=== PATIENT | male | born 1985 | race Caucasian/White ===

== ENCOUNTER 2018-07-31 19:40 | Observation (INO) | payer MEDICARE, OTHER ==
[~2018-07-31] VITALS: Ht 177.8 cm; Wt 90.7 kg
[2018-07-31] MEDS ORDERED: NS IV 1000 ML 1,000 ML IV ONE (20:07)
[2018-07-31] MEDS ORDERED: ASPIRIN 81 MG CHEW (CHILDREN'S ASA) PO ONE (20:15)
[2018-07-31] MEDS ORDERED: LORazepam INJ 2 MG/ML (ATIVAN) VIAL IVP ONE ×2 (20:15→20:45)
[2018-07-31 20:16] LABS: BASOPHILS # (AUTO) 0.1 10^3/uL (0.0-0.1); BASOPHILS % (AUTO) 1 % (0-10); EOSINOPHILS # (AUTO) 0.4 10^3/uL (0.0-0.3); EOSINOPHILS % (AUTO) 4 % (0-10); HEMATOCRIT 49 % (40-54); HEMOGLOBIN 17.5 G/DL (13.3-17.7); LYMPHOCYTES # (AUTO) 3.9 X 10^3 (1.0-4.0); LYMPHOCYTES % (AUTO) 33 % (12-44); MEAN CORPUSCULAR HEMOGLOBIN 30 PG (25-34); MEAN CORPUSCULAR HGB CONC 35 G/DL (32-36); MEAN CORPUSCULAR VOLUME 85 FL (80-99); MEAN PLATELET VOLUME 11.1 FL (7.4-10.4); MONOCYTES # (AUTO) 1.1 X 10^3 (0.0-1.0); MONOCYTES % (AUTO) 9 % (0-12); NEUTROPHILS # (AUTO) 6.5 X 10^3 (1.8-7.8); NEUTROPHILS % (AUTO) 54 % (42-75); PLATELET COUNT 217 10^3/uL (130-400); RED CELL DISTRIBUTION WIDTH 12.7 % (10.0-14.5)
[2018-07-31 20:20] LABS: BILIRUBIN,URINE NEGATIVE (NEGATIVE); CLARITY,URINE CLEAR; COLOR,URINE YELLOW; GLUCOSE, URINE (UA) NEGATIVE (NEGATIVE); KETONES,URINE NEGATIVE (NEGATIVE); LEUKOCYTE ESTERASE ,URINE 2+ (NEGATIVE); NITRITE,URINE NEGATIVE (NEGATIVE); PH,URINE 6.5 (5-9); PROTEIN,URINE 1+ (NEGATIVE); UROBILINOGEN,URINE NORMAL (NORMAL)
[2018-07-31 20:26] LABS: INR 0.9 (0.8-1.4); PROTHROMBIN TIME PATIENT 12.7 SEC (12.2-14.7)
[2018-07-31 20:30] LABS: ALANINE AMINOTRANSFERASE 47 U/L (0-55); ALBUMIN 4.6 GM/DL (3.2-4.5); ALKALINE PHOSPHATASE 81 U/L (40-136); BILIRUBIN,TOTAL 0.5 MG/DL (0.1-1.0); BUN/CREATININE RATIO 13; CALCIUM 9.5 MG/DL (8.5-10.1); CARBON DIOXIDE 21 MMOL/L (21-32); CHLORIDE 106 MMOL/L (98-107); CREATINE KINASE 130 U/L (30-200); CREATININE SERUM 1.12 MG/DL (0.60-1.30); GFR ESTIMATED > 60; GLUCOSE 108 MG/DL (70-105); MAGNESIUM 2.1 MG/DL (1.8-2.4); POTASSIUM 3.6 MMOL/L (3.6-5.0); SODIUM 139 MMOL/L (135-145); TOTAL PROTEIN 7.3 GM/DL (6.4-8.2)
[2018-07-31 20:34] LABS: AMPHETAMINE SCREEN, URINE POSITIVE (NEGATIVE); BARBITURATE SCREEN URINE NEGATIVE (NEGATIVE); BENZODIAZEPINES SCREEN URINE NEGATIVE (NEGATIVE); CANNABINOID SCREEN, URINE POSITIVE (NEGATIVE); COCAINE SCREEN URINE NEGATIVE (NEGATIVE); METHADONE STAT NEGATIVE (NEGATIVE); METHAMPHETAMINE SCREEN URINE S NEGATIVE (NEGATIVE); OPIATE SCREEN URINE NEGATIVE (NEGATIVE); OXYCODONE STAT NEGATIVE (NEGATIVE); PROPOXYPHENE STAT NEGATIVE (NEGATIVE); TRICYCLIC ANTIDEPRESSANTS SCRE NEGATIVE (NEGATIVE)
[2018-07-31 20:35] LABS: BACTERIA,URINE TRACE /HPF; RBC,URINE RARE /HPF
--- NOTE | 2018-07-31 20:35 | ED Chest Pain ---
General Chief Complaint: Chest Pain Stated Complaint: CP Nursing Triage Note: PT complaining of left arm pain and chest pain. Pt appears extremely anxious and does admit to using methamphetamines earlier today. Nursing Sepsis Screen: No Definite Risk Source: patient, other (friend) Exam Limitations: no limitations (CARMELA FALLON MD) History of Present Illness Date Seen by Provider: July 31, 2018 Time Seen by Provider: 19:58 Initial Comments This 33-year-old man presents to the emergency room with complaints of hypertension and chest pain. He had been seated at [facility] in their ER prior to coming here. He left because he did not want to receive medications they were offering him, and he claims they wanted to "send me to the [facility] [employer] [facility]". Patient is very anxious with pressured speech and has dystonic movements. Presentation is consistent with influence of methamphetamines. Patient states he may have used methamphetamines today in the "hit I took" earlier. His friend states he did use methamphetamines this afternoon. Patient states he hurts all over including his chest. He reports history of hypertension. It is difficult to obtain an accurate blood pressure measurement because of his dystonic movements. (CARMELA FALLON MD) Allergies and Home Medications Allergies Coded Allergies: methylphenidate (Verified Allergy, Unknown, Unknown, 07/31/18) tramadol (Verified Allergy, Unknown, Unknown, 07/31/18) Patient Home Medication List Home Medication List Reviewed: Yes (CARMELA FALLON MD) Review of Systems Review of Systems Constitutional: see HPI EENTM: Other (oropharynx is very dry) Respiratory: No Symptoms Reported Cardiovascular: See HPI Gastrointestinal: No Symptoms Reported Genitourinary: No Symptoms Reported Musculoskeletal: see HPI Skin: no symptoms reported Psychiatric/Neurological: See HPI Endocrine: No Symptoms Reported Hematologic/Lymphatic: No Symptoms Reported (CARMELA FALLON MD) Past Gxbdpns-Iwjlhb-Fqdabw Hx Past Med/Social Hx: Reviewed and Corrections made (CARMELA FALLON MD) Patient Social History Alcohol Use: Occasionally Uses Recreational Drug Use: Yes Drug of Choice: Methamphetamine Smoking Status: Current Everyday Smoker 2nd Hand Smoke Exposure: Yes Recent Foreign Travel: No Contact w/Someone Who Travel: No Recent Infectious Disease Expo: No Recent Hopitalizations: No Physical Abuse: No Sexual Abuse: No Mistreated: No (CARMELA FALLON MD) Past Medical History Surgeries: No Respiratory: No Cardiac: Yes Hypertension Neurological: No Genitourinary: No Gastrointestinal: No Musculoskeletal: No Endocrine: No HEENT: No Cancer: No Psychosocial: Yes (substance abuse) Anxiety, Bipolar Integumentary: No Blood Disorders: No (CARMELA FALLON MD) Physical Exam Vital Signs Vital Signs - First Documented 07/31/18 20:00 Temp 97.6 Pulse 106 Resp 24 B/P (MAP) 194/160 (171) Pulse Ox 100 O2 Delivery Room Air (JEANINE COVINGTON MD) Vital Signs Capillary Refill : Less Than 3 Seconds (CARMELA FALLON MD) Height, Weight, BMI Height: 5'10.00" Weight: 200lbs. oz. 90.467599nw; BMI Method:Estimated General Appearance: WD/WN, Moderate Distress HEENT: PERRL/EOMI, Other (oropharynx dry) Neck: Normal Inspection Respiratory: Lungs Clear, Normal Breath Sounds, No Accessory Muscle Use, No Respiratory Distress Cardiovascular: No Edema, No Murmur, Tachycardia (regular) Gastrointestinal: Normal Bowel Sounds, Soft; No Distended; Tenderness ( generalized, mild) Extremity: Normal Capillary Refill, Normal Inspection, No Pedal Edema Neurologic/Psychiatric: Alert, No Motor/Sensory Deficits, Other (dystonic movements, very anxious, pressured speech) Skin: Normal Color, Warm/Dry (CARMELA FALLON MD) Progress/Results/Core Measures Results/Orders Lab Results Laboratory Tests Test 07/31/18 19:53 07/31/18 20:16 07/31/18 23:58 Range/Units White Blood Count 12.0 H 4.3-11.0 10^3/uL Red Blood Count 5.81 4.35-5.85 10^6/uL Hemoglobin 17.5 13.3-17.7 G/DL Hematocrit 49 40-54 % Mean Corpuscular Volume 85 80-99 FL Mean Corpuscular Hemoglobin 30 25-34 PG Mean Corpuscular Hemoglobin Concent 35 32-36 G/DL Red Cell Distribution Width 12.7 10.0-14.5 % Platelet Count 217 130-400 10^3/uL Mean Platelet Volume 11.1 H 7.4-10.4 FL Neutrophils (%) (Auto) 54 42-75 % Lymphocytes (%) (Auto) 33 12-44 % Monocytes (%) (Auto) 9 0-12 % Eosinophils (%) (Auto) 4 0-10 % Basophils (%) (Auto) 1 0-10 % Neutrophils # (Auto) 6.5 1.8-7.8 X 10^3 Lymphocytes # (Auto) 3.9 1.0-4.0 X 10^3 Monocytes # (Auto) 1.1 H 0.0-1.0 X 10^3 Eosinophils # (Auto) 0.4 H 0.0-0.3 10^3/uL Basophils # (Auto) 0.1 0.0-0.1 10^3/uL Prothrombin Time 12.7 12.2-14.7 SEC INR Comment 0.9 0.8-1.4 Activated Partial Thromboplast Time 30 24-35 SEC Sodium Level 139 135-145 MMOL/L Potassium Level 3.6 3.6-5.0 MMOL/L Chloride Level 106 98-107 MMOL/L Carbon Dioxide Level 21 21-32 MMOL/L Anion Gap 12 5-14 MMOL/L Blood Urea Nitrogen 14 7-18 MG/DL Creatinine 1.12 0.60-1.30 MG/DL Estimat Glomerular Filtration Rate > 60 BUN/Creatinine Ratio 13 Glucose Level 108 H 70-105 MG/DL Calcium Level 9.5 8.5-10.1 MG/DL Corrected Calcium 8.5-10.1 MG/DL Magnesium Level 2.1 1.8-2.4 MG/DL Total Bilirubin 0.5 0.1-1.0 MG/DL Aspartate Amino Transf (AST/SGOT) 19 5-34 U/L Alanine Aminotransferase (ALT/SGPT) 47 0-55 U/L Alkaline Phosphatase 81 40-136 U/L Total Creatine Kinase 130 30-200 U/L Myoglobin 40.0 10.0-92.0 NG/ML Troponin I < 0.028 < 0.028 <0.028 NG/ML Total Protein 7.3 6.4-8.2 GM/DL Albumin 4.6 H 3.2-4.5 GM/DL Serum Alcohol 25 H <10 MG/DL Urine Color YELLOW Urine Clarity CLEAR Urine pH 6.5 5-9 Urine Specific [place] 1.015 L 1.016-1.022 Urine Protein 1+ H NEGATIVE Urine Glucose (UA) NEGATIVE NEGATIVE Urine Ketones NEGATIVE NEGATIVE Urine Nitrite NEGATIVE NEGATIVE Urine Bilirubin NEGATIVE NEGATIVE Urine Urobilinogen NORMAL NORMAL MG/DL Urine Leukocyte Esterase 2+ H NEGATIVE Urine RBC (Auto) NEGATIVE NEGATIVE Urine RBC RARE /HPF Urine WBC 10-25 H /HPF Urine Squamous Epithelial Cells 2-5 /HPF Urine Crystals NONE /LPF Urine Bacteria TRACE /HPF Urine Casts NONE /LPF Urine Mucus SMALL H /LPF Urine Culture Indicated YES Urine Opiates Screen NEGATIVE NEGATIVE Urine Oxycodone Screen NEGATIVE NEGATIVE Urine Methadone Screen NEGATIVE NEGATIVE Urine Propoxyphene Screen NEGATIVE NEGATIVE Urine Barbiturates Screen NEGATIVE NEGATIVE Ur Tricyclic Antidepressants Screen NEGATIVE NEGATIVE Urine Phencyclidine Screen NEGATIVE NEGATIVE Urine Amphetamines Screen POSITIVE H NEGATIVE Urine Methamphetamines Screen NEGATIVE NEGATIVE Urine Benzodiazepines Screen NEGATIVE NEGATIVE Urine Cocaine Screen NEGATIVE NEGATIVE Urine Cannabinoids Screen POSITIVE H NEGATIVE (JEANINE COVINGTON MD) My Orders Orders - JEANINE COVINGTON MD Troponin I (07/31/18 23:58) (JEANINE COVINGTON MD) Medications Given in ED Current Medications Medications Dose Ordered Sig/Evelin Route Start Time Stop Time Status Last Admin Dose Admin Aspirin 324 mg ONCE ONCE PO 07/31/18 20:15 07/31/18 20:16 DC 07/31/18 20:18 324 MG Lorazepam 1 mg ONCE ONCE IVP 07/31/18 20:15 07/31/18 20:16 DC 07/31/18 20:16 1 MG Lorazepam 1 mg ONCE ONCE IVP 07/31/18 20:45 07/31/18 20:48 DC 07/31/18 20:51 1 MG Sodium Chloride 1,000 ml @ 0 mls/hr Q0M ONCE IV 07/31/18 20:07 07/31/18 20:10 DC 07/31/18 20:16 999 MLS/HR (JEANINE COVINGTON MD) Vital Signs/I&O 07/31/18 08/01/18 08/01/18 20:00 01:46 06:05 Temp 97.6 98.0 97.9 Pulse 106 66 70 Resp 24 16 18 B/P (MAP) 194/160 (171) 110/80 (90) 146/61 (89) Pulse Ox 100 96 97 O2 Delivery Room Air Room Air Room Air 08/01/18 00:00 Intake Total 1000 ml Balance 1000 ml (JEANINE COVINGTON MD) Blood Pressure Mean: 171 Progress Progress Note #1: Time: 20:34 Progress Note Chest pain workup is in progress. Patient was seen and examined. IV fluids are infusing. Patient would not give me permission to contact [facility] to obtain records. He states no medications were fluids were given there. Patient did consent to IV fluids and Ativan. Progress Note #2: Time: 20:47 Progress Note Patient was given aspirin as part of the chest pain protocol. He received Ativan. He is still quite anxious and tremoring. He now states that he believes the people he came with her trying to hurt him. He wants to file a police report. He has paranoid to be in the room alone or to have the door open. He is agreeable to another milligram of Ativan. I did ask about trying an antipsychotic/mood stabilizer due to his history of bipolar. He does not consent to anything other than Ativan at this time. He states chest pain has resolved. He does now admit to specifically using methamphetamines today. Progress Note #3: Time: 21:21 Progress Note Initial workup was unremarkable. Patient is more relaxed after the second milligram of Ativan. He is less paranoid. He is still free of chest pain. He states he is from [place], [place], and is here visiting. He drove to [place] before he was brought to the emergency room here. Police have been here and have now left since the patient is calmer. He is still rather hypertensive. We will try giving a dose of clonidine. Care of this patient is being transitioned to Dr. Covington at this time. (CARMELA FALLON MD) Progress Note : Time: 22:05 Progress Note I have seen and evaluated the patient and did check out with Dr. Tsang at bedside. Patient currently is doing much better and resting peacefully and blood pressure is 130s over 90s. We will repeat troponin at the 4 hour susan and let the patient rest. 0200: Repeat troponin negative. Patient resting peacefully without any concerns. Continue to monitor. 0600: I wrote the patient to discuss the findings for the chest pain rule out which are negative. There is no indication of cardiac events or any other concerns. Patient states now that he really wasn't here for chest pain but he is here because he wanted to kill himself and still does. He reports that he wants to kill himself because of family dynamics and because of drug abuse. He admits that he has been in multiple institutions and has been off his Abilify and some other medicine for the last month. Last admission was in [place], [place] where he was prescribed Abilify. He is asking for behavioral health admission for suicide thoughts and concerns and states if he leaves here today he will kill himself by any means he has available. We will pursue behavioral health admission at this point. Care transferred to Dr. Rod pending [facility] admission. Patient is medically cleared for mental health admission. (JEANINE COVINGTON MD) Progress Note #1: Progress Note Assumed care of the patient at shift change. He has expressed interest in going to [facility] for inpatient admission. [place] does not have any beds available. We have asked [facility] to come and do a screening of the patient to set up some outpatient follow-up. For the past 10 hours the patient has been laying in bed, participating and cooperative albeit exhibiting typical stereotypic behaviors of methamphetamine influence. 1040: [facility] NIKOS martinez has already examined and interviewed the patient and agrees with our assessment but states the patient is meeting all criteria for inpatient placement. KYRA VELA has been contacted [facility] and we are first in line for a room and they will call us back and they have acceptance and a room number. The patient has been provided with lunch and has no pressing concerns at this time. Progress Note #2: Time: 16:21 Progress Note Nursing has made attempts to get the patient placed at [facility] as well as [facility]. [place] is still full, as well as [facility] and [facility]. [facility] not have a bed available at the places we checked an [facility] rejected him as they felt his behavior was manipulative. I spoke personally and they said that they have one in the ER, for us but as far as outside patient's we are still first in line for a bed. [facility] cannot give me a time line at this point. We'll discuss observation with Dr. Bautista. Patient has been sleeping for the most part has not required any further antianxiety medicines. He ate rectus lunch with no problems. No attempts to harm himself. (BLAINE ROD) Initial ECG Impression Date: July 31, 2018 Initial ECG Impression Time: 19:51 Initial ECG Rate: 103 Initial ECG Rhythm: S.Tach Comment Sinus tachycardia with no ST elevation or depression. PVCs noted. No axis deviation. Borderline QT interval. (CARMELA FALLON MD) Diagnostic Imaging Diagonstic Imaging: Xray Plain Films/CT/US/NM/MRI: chest Comments Chest x-ray viewed by me and report reviewed. See report below: NAME: LORNA BENAVIDES [facility] REC#: [id number] PT STATUS: REG ER : 1985 PHYSICIAN: CARMELA FALLON MD ADMIT DATE: 07/31/18/ER Signed Date of Exam: 07/31/18 CHEST 1 VIEW, AP/PA ONLY Indication: Chest pain Upright portable AP view of the chest is obtained. COMPARISON: No previous study is available for comparison at this time. FINDINGS: Heart size and pulmonary vasculature are within normal limits, and the lungs are clear, bilaterally. IMPRESSION: Unremarkable chest. Dictated by: Dictated on workstation # [id number] Dict: 07/31/182037 Trans: 07/31/182038 Interpreted by: ANDRADE BROWN MD Electronically signed by: ANDRADE BROWN MD 07/31/182038 (CARMELA FALLON MD) Departure Communication (Admissions) Time/Spoke to Admitting Phy: 16:00 Dr. Bautista agrees to observe the patient and have consult with geriatric social worker for placement at [facility]. (BLAINE ROD) Impression Primary Impression: Chest pain Qualified Codes: R07.9 - Chest pain, unspecified Additional Impressions: Hypertension Qualified Codes: I10 - Essential (primary) hypertension Methamphetamine abuse Suicidal ideations Disposition: ADMITTED INPATIENT Condition: Stable Admissions Decision to Admit Reason: Admit from ER (General) Decision to Admit/Date: August 01, 2018 Time/Decision to Admit Time: 16:00 (BLAINE ROD) Departure-Patient Inst. Referrals: NO,LOCAL PHYSICIAN (PCP/Family) Primary Care Physician CARMELA FALLON MD July 31, 2018 20:35 JEANINE COVINGTON MD August 01, 2018 04:22 BLAINE ROD August 01, 2018 06:38
--- NOTE | 2018-07-31 20:41 | Diagnostic Imaging Report ---
Indication: Chest pain Upright portable AP view of the chest is obtained. COMPARISON: No previous study is available for comparison at this time. FINDINGS: Heart size and pulmonary vasculature are within normal limits, and the lungs are clear, bilaterally. IMPRESSION: Unremarkable chest. Dictated by: Dictated on workstation # [id number]
--- NOTE | 2018-07-31 20:43 | NUR ---
Contacted [place] police dept. per pt request to file a police report regarding the people who brought him to this ED. Pt states, "I don't feel safe with them, they are trying to hurt me." Addendum: 07/31/18 at 2045 by KRYSTYNA Pt noted to be paranoid and suspicious.
--- NOTE | 2018-07-31 21:00 | NUR ---
Salo MAGALLON in room with pt at this time.
--- NOTE | 2018-07-31 22:44 | NUR ---
Pt resting quietly in room at this time. Vitals stable
[2018-08-01 01:46] VITALS: BP 110/80
[2018-08-01 06:05] VITALS: BP 146/61
--- NOTE | 2018-08-01 06:06 | NUR ---
Physician in room at this time to talk to pt about discharge. Pt states that he can't leave because he needs a behavioral health bed. Pt states that if he leaves the hospital he is going to kill himself. Pt states he has been off of his mental health medications for about a month and has been depressed.
--- NOTE | 2018-08-01 06:30 | NUR ---
Contacted [facility] ([facility]) and facility reports no bed availability. Left voice mail with [facility]. Contacted [facility]) and facility reports no bed availability.
--- NOTE | 2018-08-01 06:35 | NUR ---
Contacted save line for [facility] evaluation request.
--- NOTE | 2018-08-01 07:00 | NUR ---
Assumed care of pt. Pt sleeping; vitals stable.
--- NOTE | 2018-08-01 07:15 | NUR ---
[facility]iguelito [facility]ado called and stated arrival time to see pt would be approximately 0800.
--- NOTE | 2018-08-01 08:11 | NUR ---
Miguelito from save line here at this time.
--- NOTE | 2018-08-01 08:46 | NUR ---
Miguelito from save line reports pt is still suicidal and is not safe to be discharged. Dr. Rod notified.
--- NOTE | 2018-08-01 09:07 | NUR ---
[facility].
--- NOTE | 2018-08-01 10:39 | NUR ---
Lunch order placed for pt at this time.
--- NOTE | 2018-08-01 12:16 | NUR ---
[facility] called at this time. Left Message.
--- NOTE | 2018-08-01 12:34 | NUR ---
[facility] called; bed available; faxed info for review. [facility] notified.
--- NOTE | 2018-08-01 13:16 | NUR ---
[facility] called after reviewing pt's chart. [facility] reports feeling pt's behavior is manipulative and will not accept [facility] at this time[facility]
--- NOTE | 2018-08-01 14:29 | NUR ---
Pt sleeping in bed at this time. Will continue to monitor.
[2018-08-01 16:50] VITALS: BP 144/84
[2018-08-01] MEDS ORDERED: ONDANSETRON 4 MG/2 ML (SDV) Z0FRAN IV PRN (17:30)
[2018-08-01] MEDS ORDERED: IBUPROFEN 800 MG (MOTRIN) TAB PO PRN (17:30)
[2018-08-01] MEDS ORDERED: CATHETER FLUSH 10 ML SYR IV PRN (17:30)
[2018-08-01] MEDS ORDERED: ACETAMINOPHEN 500 MG TAB (TYLENOL) PO PRN (17:30)
[2018-08-01] MEDS ORDERED: LORazepam INJ 2 MG/ML (ATIVAN) VIAL IV PRN (17:30)
--- OUTSIDE RECORDS SUMMARY | 2018-08-01 18:34 | XMS REPORT | Continuity of Care Document ---
Demographics Preferred Language Unknown Marital Status Unknown Sikhism Affiliation Unknown Race Unknown Ethnic Group Unknown Author Organization Unknown Address Unknown Allergies There is no data. Medications Medication Packaging Start Date Stop Date Route Dosage Sig CLONIDINE TAB 0.1 MG (CATAPRES) MG 07/31/2018 07/31/2018 ONCE&1335 Ondansetron 4mg oral DissolveTab (Zofran) MG 07/31/2018 07/31/2018 PRN ONCE Problems Date Dx Coded Attending Type Code Diagnosis Diagnosed By 07/31/2018 W 799.24 EMOTIONAL LABILITY 07/31/2018 W F91.8 OTHER CONDUCT DISORDERS 07/31/2018 W 799.24 EMOTIONAL LABILITY 07/31/2018 W F91.8 OTHER CONDUCT DISORDERS 07/31/2018 W R45.850 HOMICIDAL IDEATIONS 07/31/2018 W V62.85 HOMICIDAL IDEATION 07/31/2018 W 401.9 UNSPECIFIED ESSENTIAL HYPERTENSION 07/31/2018 W 799.24 EMOTIONAL LABILITY 07/31/2018 W F91.8 OTHER CONDUCT DISORDERS 07/31/2018 W I10 ESSENTIAL ( PRIMARY) HYPERTENSION 07/31/2018 W R45.850 HOMICIDAL IDEATIONS 07/31/2018 W V62.85 HOMICIDAL IDEATION 07/31/2018 W 401.9 UNSPECIFIED ESSENTIAL HYPERTENSION 07/31/2018 W 799.24 EMOTIONAL LABILITY 07/31/2018 W F91.8 OTHER CONDUCT DISORDERS 07/31/2018 W I10 ESSENTIAL ( PRIMARY) HYPERTENSION 07/31/2018 W R45.850 HOMICIDAL IDEATIONS 07/31/2018 W V62.85 HOMICIDAL IDEATION Procedures There is no data. Results There is no data. Encounters ACCT No. Visit Date/Time Discharge Status Pt. Type Provider Facility Loc./Unit Complaint [id number] 07/31/2018 13:39:38 Document Registration [id number] 07/31/2018 13:20:00 Document Registration
--- NOTE | 2018-08-01 18:53 | NUR ---
Brain admitted to room 413-1, with an admitting diagnosis of suicidal ideation, on 08/01/18 from ED via , accompanied by . LORNA BENAVIDES introduced to surroundings, call light, bed controls, phone, TV, temperature control, lights, meal times, smoking policy, visitor policy, side rail policy, bathrooms and showers. Patient Rights given to patient in the handbook. LORNA BENAVIDES verbalizes understanding that [facility] is not responsible for the loss or damage to any personal effects or valuables that are kept in the patients possession during their hospitalization. The following Patient Care Plans were discussed with the patient: Discharge Planning, medications, pain management, and dehydration. LORNA BENAVIDES verbalizes understanding of Interdisciplinary Patient Education. Patient and/or family were informed about the Rapid Response Team and its purpose.
[2018-08-01 19:50] VITALS: BP 128/66
[2018-08-01] MEDS: CATHETER FLUSH 10 ML SYR IV SCH (22:00)
[2018-08-02 00:12] VITALS: BP 156/72
[2018-08-02 04:00] VITALS: BP 137/90
[2018-08-02] MEDS: CATHETER FLUSH 10 ML SYR IV SCH (06:16)
[2018-08-02 08:00] VITALS: BP 134/89
--- NOTE | 2018-08-02 11:28 | Short Stay Summary-Hospitalist ---
History of Present Illness HPI/Chief Complaint Patient initially presented to the [facility] emergency room with chest pain after using meth amphetamine. He was agitated and due to reported dystonic movement and agitation is very difficult to get an accurate blood pressure. He was transferred to our emergency room where his behavior according to the emergency room physician did calm down after receiving Ativan. It was only after they discussed discharge in the fact that he did not require inpatient admission that he then stated apparently that he was feeling suicidal. Multiple stable psychiatric facilities for contacted and were full refused to take him except for [facility] which stated that he was on the waiting list for the next bed available. He apparently spent about 16 hours in the emergency room with no bed space available. He was admitted overnight for observation. He was very disagreeable with nursing staff and verbally abusive during his stay. He refused to eat his food off of Styrofoam where standard suicide precautions and stated that if he intended to kill himself he certainly wouldn't do it with a metal fork or knife and so he was ultimately given regular silverware and a plate. He slept the night with no further chest pain. In no reports of suicidal thoughts this morning and no past history of suicide attempt. His drug screen was positive for methamphetamine and a low level of alcohol and negative for everything else. Date Seen 08/02/18 Time Seen by a Provider: 10:00 Attending Physician Justin Sanders MD PCP No,Local Physician Referring Physician Date of Admission August 01, 2018 at 16:05 Home Medications & Allergies Home Medications Reviewed patient Home Medication Reconciliation performed by pharmacy medication reconciliations low voltage technician and/or nursing. Patients Allergies have been reviewed. Allergies Allergies Coded Allergies methylphenidate (Verified Allergy, Unknown, Unknown, 07/31/18) tramadol (Verified Allergy, Unknown, Unknown, 07/31/18) Past [id number] Hx Past Med/Social Hx: Reviewed and Corrections made Patient Social History Alcohol Use: Occasionally Uses Recreational Drug Use: Yes Drug of Choice: Methamphetamine Smoking Status: Current Everyday Smoker 2nd Hand Smoke Exposure: Yes Recent Foreign Travel: No Contact w/other who traveled: No Recent Hopitalizations: No Recent Infectious Disease Expo: No Past Medical History Cardiac: Hypertension Psychosocial: Anxiety, Bipolar History of Blood Disorders: No Review of Systems Constitutional: No chills, No diaphoresis, No dizziness, No fever, No malaise, No weakness, No weight gain, No weight loss, No other Physical Exam Physical Exam Vital Signs Vital Signs - First Documented 07/31/18 20:00 Temp 97.6 Pulse 106 Resp 24 B/P (MAP) 194/160 (171) Pulse Ox 100 O2 Delivery Room Air Capillary Refill : Less Than 3 Seconds Height, Weight, BMI Height: 5'10.00" Weight: 200lbs. 0.0oz. [id number]; 28.7 BMI Method:Estimated General Appearance: WD/WN, Moderate Distress HEENT: PERRL/EOMI, Other (oropharynx dry) Neck: Normal Inspection Respiratory: Lungs Clear, Normal Breath Sounds, No Accessory Muscle Use, No Respiratory Distress Cardiovascular: Regular Rate, Rhythm, No Edema, No Gallop, No JVD, No Murmur, Tachycardia (regular) Gastrointestinal: Normal Bowel Sounds, No Organomegaly, Non Tender, Soft; No Distended; Tenderness (generalized, mild) Extremity: Normal Capillary Refill, Normal Inspection, No Pedal Edema Neurologic/Psychiatric: Alert, No Motor/Sensory Deficits Skin: Normal Color, Warm/Dry Results Results/Procedures Labs Laboratory Tests 07/31/18 19:53 Patient resulted labs reviewed. Short Stay Diagnosis Discharge Diagnosis-Short Stay Admission Diagnosis 1. Methamphetamine abuse. 2. Agitated behavior secondary to number 1. 3. Chest pain secondary to number 1 resolved Final Discharge Diagnosis As per admission diagnosis Conclusion Plan Patient had an uneventful evening and slept through the night. This morning when offered inpatient therapy stated that he wasn't suicidal but he just had no word ago and he has a ride he can arrive at 2 p.m. to take him home. He appears to be in no acute distress with no history of suicide gestures in the past and no complaints of depression currently. He is subsequently being set up for discharge. Clinical Quality Measures DVT/VTE Risk/Contraindication: RFS Level Per Nursing on Admit: 0=No Risk/No VTE PPX JUSTIN SANDERS MD August 02, 2018 11:28
[2018-08-02 12:00] VITALS: BP 153/102
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
[2018-08-02 13:25] VITALS: BP 134/89
--- NOTE | 2018-08-02 13:25 | NUR ---
Discharge instructions discussed with patient. Patient verbalizes understanding. Patient IV removed. PCT assisted patient to main entrance where ride was waiting. PCT assisted patient to vehicle, for patient to go home with mother in [place].
== END 2018-08-02 11:33 | disposition home or self-care (01) ==
LOC: ER 19:43 → UNDOADMOB 08-01 16:05 → 4TH 08-01 16:05 → UNDODISOB 08-02 13:25
PROVIDERS: ADMIT Internal Medicine; ATTEND Internal Medicine
DX: F15.10 Other stimulant abuse, uncomplicated (principal); R45.851 Suicidal ideations; R45.1 Restlessness and agitation; R07.9 Chest pain, unspecified; I10 Essential (primary) hypertension; F41.9 Anxiety disorder, unspecified; F31.9 Bipolar disorder, unspecified
CPT/HCPCS: 36415; 71045; 80053; 80306; 80320; 81000; 82550; 83735; 83874; 84484; 85025; 85610; 85730; 87088; 93005; 93041; 96361; 96374; 96376; G0378